=== PATIENT | male | born 1995 | race Caucasian/White ===

== ENCOUNTER 2016-08-16 21:55 | Emergency (ER) | payer MEDICAID ==
[~2016-08-16] VITALS: Ht 172.7 cm; Wt 68.0 kg
[2016-08-16 23:20] VITALS: BP 120/60
== END 2016-08-16 23:20 | disposition home or self-care (01) ==
LOC: ER 21:57
DX: S01.21XA Laceration without foreign body of nose, initial encounter (principal); R04.0 Epistaxis; Y04.2XXA Assault by strike against or bumped into by another person, initial encounter; Y93.89 Activity, other specified; Y92.198 Other place in other specified residential institution as the place of occurrence of the external cause; R03.0 Elevated blood-pressure reading, without diagnosis of hypertension; F15.20 Other stimulant dependence, uncomplicated
CPT/HCPCS: 12011; 99283